=== PATIENT | female | born 1990 | race Caucasian/White ===

== ENCOUNTER 2016-06-30 20:33 | Emergency (ER) | payer OTHER ==
[~2016-06-30] VITALS: Ht 165.1 cm; Wt 68.0 kg
[~2016-06-30 20:33] MED LIST: AZIT250T PO; HYDR-971 PO; HYDR115S2 PO; PRED50TA PO; PROAIR HFA8.5 GM INH; SULF1TAB24 PO
[2016-06-30 22:46] VITALS: BP 143/77
[2016-06-30 23:27] LABS: OBC FLU VALID
[2016-07-01] MEDS ORDERED: FLUT9.9S NS (00:55)
[2016-07-01] MEDS ORDERED: BENZ200C39 PO (00:55)
--- NOTE | 2016-07-01 00:55 | PHYS DOC ---
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 She's had a nonproductive cough with posttussive emesis as well. She denies shortness of breath or fever. Patient was seen here on 06/02/16 and diagnosed with strep throat. She was prescribed a Z -Chris, prednisone, albuterol inhaler, and Tussionex. She reports interval improvement in her symptoms after completion of the medications. She did receive a flu shot this year. Her PCP is Dr. Armando Lorenz. Review of Systems Review of Systems Constitutional: Denies fever or chills. [] Eyes: Denies change in visual acuity, redness, or eye pain. [] HENT: Reports sore throat, ear pain, nasal congestion. Respiratory: Denies shortness of breath. Reports nonproductive cough. GI: Denies abdominal pain, nausea, bloody stools or diarrhea. Reports posttussive emesis. Musculoskeletal: Denies back pain or joint pain. [] Integument: Denies rash or skin lesions. [] Neurologic: Denies headache, focal weakness or sensory changes. [] All systems reviewed and negative unless otherwise stated in the HPI. Allergies Allergies Allergies Coded Allergies Type Severity Reaction Last Updated Verified No Known Drug Allergies 02/16/16 No Physical Exam Physical Exam Constitutional: Well developed, well nourished, no acute distress, non-toxic appearance. [] HENT: Normocephalic, atraumatic, bilateral external ears normal, oropharynx moist, no oral exudates, nose normal. Bilateral TMs without erythema or bulging. There is posterior pharyngeal erythema without tonsillar edema or exudates. Bilateral nasal turbinates are swollen and erythematous with purulent drainage. Eyes: PERRLA, EOMI, conjunctiva normal, no discharge. [] Neck: Normal range of motion, no tenderness, supple, no stridor. [] Cardiovascular: Heart rate regular rhythm, no murmur [] Lungs & Thorax: Bilateral breath sounds clear to auscultation without wheezes, rales, or rhonchi. Skin: Warm, dry, no erythema, no rash. [] Neurologic: Alert and oriented X 3, normal motor function, normal sensory function, no focal deficits noted. [] Psychologic: Affect normal, judgement normal, mood normal. [] Current Patient Data Vital Signs Vital Signs Date Time Temp Pulse Resp B/P Pulse Ox O2 Delivery O2 Flow Rate FiO2 06/30/16 22:46 98.4 108 16 100 Room Air 98.4 Lab Values Laboratory Tests Test 06/30/16 22:59 Influenza Type A Antigen Negative (NEGATIVE) Influenza Type B Antigen Negative (NEGATIVE) EKG EKG [] Radiology/Procedures Radiology/Procedures [] Course & Med Decision Making Course & Med Decision Making Pertinent Labs and Imaging studies reviewed. (See chart for details) [] Dragon Disclaimer Dragon Disclaimer This electronic medical record was generated, in whole or in part, using a voice recognition dictation system. Departure Departure Impression: Primary Impression: URI (upper respiratory infection) Disposition: 01 HOME, SELF-CARE Condition: STABLE Referrals: ARMANDO LORENZ (PCP) Patient Instructions: Upper Respiratory Infection, Adult, [id number] Additional Instructions: Your flu and strep tests were negative today. Please use the prescribed nasal spray daily to help with nasal drainage and congestion. You may mix liquid Benadryl and liquid Maalox and a 50/50 solution to help with your throat. Swish, gargle, and spit out. Please follow-up with a primary care provider within the next week. Return to the emergency department with any new or concerning symptoms. Scripts Benzonatate 200 Mg Capsule1 Cap PO TID #30 CAP Prov:YEIMY ROOT 07/01/16 Fluticasone Propionate (Flonase Allergy Relief)9.9 Ml [place].susp2 Sprays NS DAILY #1 BOTTLE Prov:YEIMY ROOT 07/01/16 Problem Qualifiers Primary Impression: URI (upper respiratory infection) URI type: unspecified viral URI Qualified Code: J06.9 - Acute upper respiratory infection, unspecified YEIMY ROOT Jul 01, 2016 00:55
[2016-07-01 10:03] LABS: NEGATIVE OBC STREP NEG; POSITIVE OBC STREP POS
== END 2016-07-01 01:00 | disposition home or self-care (01) ==
LOC: ER 20:33
DX: J06.9 Acute upper respiratory infection, unspecified (principal); H92.03 Otalgia, bilateral; F41.9 Anxiety disorder, unspecified; F17.200 Nicotine dependence, unspecified, uncomplicated; F12.10 Cannabis abuse, uncomplicated; Z90.89 Acquired absence of other organs; Z90.49 Acquired absence of other specified parts of digestive tract; Z86.14 Personal history of Methicillin resistant Staphylococcus aureus infection
CPT/HCPCS: 87070; 87804; 87880; 99284

== ENCOUNTER 2016-07-28 12:25 | Emergency (ER) | payer OTHER ==
[~2016-07-28] VITALS: Ht 165.1 cm; Wt 65.8 kg
[~2016-07-28 12:25] MED LIST changes: +BENZ200C39 PO; +FLUT9.9S NS
[2016-07-28] MEDS ORDERED: HYDROCODONE/APAP 5/325MG TABLET. PO ONE (13:00)
[2016-07-28] MEDS ORDERED: DIPHTH,PERTUSS(ACELL),TET TOX 0.5 ML DISP.SYRIN. VAX IM ONE (13:15)
[2016-07-28] MEDS ORDERED: ONDANSETRON ODT 4 MG TAB.RAPDIS PO ONE (13:15)
[2016-07-28] MEDS ORDERED: ONDA4TAB10 SL (13:29)
[2016-07-28] MEDS ORDERED: HYDR-2666 PO (13:29)
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
[2016-07-28 13:45] VITALS: BP 97/61
--- NOTE | 2016-07-28 13:48 | RAD ---
Left RIBS with chest, 3 views, 07/28/2016: History: Rib pain, injury No fracture or rib abnormality is detected. There is no evidence of underlying pneumothorax, hemothorax or pulmonary infiltrate. The heart size is normal. IMPRESSION: No significant left rib abnormality is detected.
== END 2016-07-28 14:15 | disposition home or self-care (01) ==
LOC: ER 12:25
DX: R07.81 Pleurodynia (principal); R11.2 Nausea with vomiting, unspecified; F41.9 Anxiety disorder, unspecified; Z90.49 Acquired absence of other specified parts of digestive tract; F12.10 Cannabis abuse, uncomplicated; Z86.14 Personal history of Methicillin resistant Staphylococcus aureus infection; Y08.89XA Assault by other specified means, initial encounter; Y93.89 Activity, other specified; Y92.89 Other specified places as the place of occurrence of the external cause; Y99.8 Other external cause status
CPT/HCPCS: 71101; 81025; 90471; 90715; 99284; Q0162

== ENCOUNTER 2016-08-20 16:06 | Emergency (ER) | payer OTHER ==
[~2016-08-20] VITALS: Ht 165.1 cm; Wt 68.0 kg
[~2016-08-20 16:06] MED LIST changes: +HYDR-2666 PO; +ONDA4TAB10 SL
[2016-08-20 16:19] VITALS: BP 120/76
--- NOTE | 2016-08-20 17:50 | PHYS DOC ---
Past Medical History Past Medical History: Anxiety, Other Additional Past Medical Histor: mrsa in abscess Past Surgical History: Cholecystectomy, Tonsillectomy Additional Past Surgical Histo: ROTATOR CUFF SX RIGHT SX Alcohol Use: None Drug Use: Marijuana Adult General Chief Complaint Chief Complaint: ABDOMINAL PAIN IN [facility] HPI Patient is a 25 year old female who presents with pelvic and right lower quadrant pain. Patient states her pain has been present for the past few days. Patient is approximately 5-1/2 weeks with last menstrual period on July 14, 2016. The patient states that she took a home tests which were positive but has not seen a healthcare provider for confirmation at this time. Patient states that the pain is typically dull but becomes sharp with certain movements including bending over and twisting at the torso. Patient also notes that she has been having burning with urination. Patient denies any vaginal bleeding or abnormal vaginal discharge. Patient denies any fevers or associated nausea or vomiting. Patient rates her pain as 5 out of 10. Patient has not taken any medications to help with symptoms. Review of Systems Review of Systems Constitutional: Denies fever or chills [] Eyes: Denies change in visual acuity, redness, or eye pain [] HENT: Denies nasal congestion or sore throat [] Respiratory: Denies cough or shortness of breath [] Cardiovascular: No additional information not addressed in HPI [] GI: Abdominal pain, denies nausea, vomiting, bloody stools or diarrhea [] : Dysuria [] Musculoskeletal: Denies back pain or joint pain [] Integument: Denies rash or skin lesions [] Neurologic: Denies headache, focal weakness or sensory changes [] Current Medications Current Medications Current Medications Medications (Trade) Dose Ordered Sig/Ronaldo Start Time Stop Time Status Last Admin Dose Admin Ceftriaxone Sodium (Rocephin 1gm Ivpb For Omni) 50 ml @ 100 mls/hr 1X ONCE 08/20/16 19:00 08/20/16 19:29 DC 08/20/16 18:40 100 MLS/HR Metronidazole (Flagyl) 500 mg 1X ONCE 08/20/16 19:45 08/20/16 19:46 DC 08/20/16 19:45 500 MG Allergies Allergies Allergies Coded Allergies Type Severity Reaction Last Updated Verified No Known Drug Allergies 07/28/16 No Physical Exam Physical Exam Constitutional: Alert, afebrile, no acute distress. [] HENT: Normocephalic, atraumatic, bilateral external ears normal, oropharynx moist, no oral exudates, nose normal. [] Eyes: PERRLA, EOMI, conjunctiva normal, no discharge. [] Neck: Normal range of motion, no tenderness, supple, no stridor. [] Cardiovascular:Heart rate regular rhythm, no murmur [] Lungs & Thorax: Bilateral breath sounds clear to auscultation [] Abdomen: Bowel sounds normal, soft, suprapubic tenderness to palpation, no masses, no pulsatile masses. Pelvic: Normal external exam, no abnormal discharge or blood in vaginal canal, no cervical motion tenderness, midline tenderness to palpation on bimanual exam , no adnexal tenderness [] Skin: Warm, dry, no erythema, no rash. [] Back: No tenderness, no CVA tenderness. [] Extremities: No tenderness, no cyanosis, no clubbing, ROM intact, no edema. [] Neurologic: Alert and oriented X 3, normal motor function, normal sensory function, no focal deficits noted. [] Current Patient Data Vital Signs Vital Signs Date Time Temp Pulse Resp B/P Pulse Ox O2 Delivery O2 Flow Rate FiO2 08/20/16 16:19 98.1 122 20 120/76 99 Room Air 98.1 Lab Values Laboratory Tests Test 08/20/16 16:45 08/20/16 17:03 08/20/16 18:00 White Blood Count 13.1x10^3/uL (4.0-11.0) H Red Blood Count 4.41x10^6/uL (3.50-5.40) Hemoglobin 13.2g/dL (12.0-15.5) Hematocrit 40.2% (36.0-47.0) Mean Corpuscular Volume 91fL (79-100) Mean Corpuscular Hemoglobin 30pg (25-35) Mean Corpuscular Hemoglobin Concent 33g/dL (31-37) Red Cell Distribution Width 14.9% (11.5-14.5) H Platelet Count 225x10^3/uL (140-400) Neutrophils (%) (Auto) 63% (31-73) Lymphocytes (%) (Auto) 26% (24-48) Monocytes (%) (Auto) 9% (0-9) Eosinophils (%) (Auto) 1% (0-3) Basophils (%) (Auto) 1% (0-3) Neutrophils # (Auto) 8.2x10^3uL (1.8-7.7) H Lymphocytes # (Auto) 3.5x10^3/uL (1.0-4.8) Monocytes # (Auto) 1.2x10^3/uL (0.0-1.1) H Eosinophils # (Auto) 0.1x10^3/uL (0.0-0.7) Basophils # (Auto) 0.1x10^3/uL (0.0-0.2) Maternal Serum HCG Beta Subunit 6mIU/mL (0-6) Sodium Level 139mmol/L (136-145) Potassium Level 3.9mmol/L (3.5-5.1) Chloride Level 103mmol/L (98-107) Carbon Dioxide Level 26mmol/L (21-32) Anion Gap 10 (6-14) Blood Urea Nitrogen 8mg/dL (7-20) Creatinine 0.7mg/dL (0.6-1.0) Estimated GFR (Cockcroft-Gault) 101.1 BUN/Creatinine Ratio 11 (6-20) Glucose Level 70mg/dL (70-99) Calcium Level 9.1mg/dL (8.5-10.1) Magnesium Level 1.9mg/dL (1.8-2.4) Total Bilirubin 0.6mg/dL (0.2-1.0) Aspartate Amino Transferase (AST) 23U/L (15-37) Alanine Aminotransferase (ALT) 16U/L (14-59) Alkaline Phosphatase 72U/L (46-116) Total Protein 7.9g/dL (6.4-8.2) Albumin 3.3g/dL (3.4-5.0) L Albumin/Globulin Ratio 0.7 (1.0-1.7) L POC Urine HCG, Qualitative Hcg negative (Negative) Urine Collection Type Unknown Urine Color Yellow Urine Clarity Clear Urine pH 6.0 Urine Specific [place] 1.010 Urine Protein Negativemg/dL (NEG-TRACE) Urine Glucose (UA) Negativemg/dL (NEG) Urine Ketones (Stick) Negativemg/dL (NEG) Urine Blood Trace (NEG) Urine Nitrite Negative (NEG) Urine Bilirubin Negative (NEG) Urine Urobilinogen Dipstick 0.2mg/dL (0.2 mg/dL) Urine Leukocyte Esterase Moderate (NEG) Urine RBC 3-5/HPF (0-2) Urine WBC 20-40/HPF (0-4) Urine Squamous Epithelial Cells Mod/LPF Urine Bacteria Few/HPF (0-FEW) Laboratory Tests 08/20/16 16:45 Laboratory Tests 08/20/16 16:45 Microbiology 08/20/16 Wet Prep - Final, Complete Microbiology 08/20/16 Wet Prep - Final, Complete EKG EKG Not performed [] Radiology/Procedures Radiology/Procedures [facility] [address] [place] [address] IMAGING REPORT Signed PATIENT: PATRICK HURST ACCOUNT: [id number] : 1990 LOCATION: ER AGE: 25 SEX: F EXAM STATUS: REG ER ORD. PHYSICIAN: LISANDRA ROCHA MD REASON: pelvic and right lower quadrant pain, last menstrual period 07/14/2016 PROCEDURE: PREG 1ST TRIMESTER PROCEDURE Obstetric ultrasound, less than 14 weeks. HISTORY Right lower quadrant pain x2 days. Positive home test. TECHNIQUE Real-time ultrasound imaging of the pelvis using transabdominal and transvaginal window is performed. COMPARISON None. FINDINGS The uterus measures 8.8 x 4.7 x 4.3 cm. There is no focal abnormality. Anteverted uterus. Cervix length is about 3.7 cm. Endometrial stripe measures 8 millimeters. An intrauterine gestational sac is not identified. No cul-de-sac free fluid is identified. Normal blood flow in the ovaries. A left functional cyst measures up to 1.2 cm. A right functional cyst measures up to 1.7 cm. Ovaries are symmetric in size. No evidence of adnexal mass. IMPRESSION Intrauterine gestation is not identified. No suspicious findings in the pelvis or adnexal. Recommend serial quantitative beta HCG. Electronically signed by: Noble Wynn MD (Aug 20, 2016 18:57:29) DICTATED and SIGNED BY: NOBLE WYNN MD DATE: 08/20/16 [id number] CC: LISANDRA ROCHA MD; JOCELINE LORENZ ~ [] Course & Med Decision Making Course & Med Decision Making Pertinent Labs and Imaging studies reviewed. (See chart for details) Patient was found to have urinary tract infection and was started on IV Rocephin. Patient's urine hCG was negative, however patient did measure a trace positive beta hCG level from her blood work. Spoke with patient regarding this and the possibility the patient may be very early at this time. The patient was also found to have bacterial vaginosis on her wet prep. The patient will be treated with Keflex for urinary tract infection and MetroGel for bacterial vaginosis with recommended follow-up with Dr. Crum of [facility] in one week for follow-up and repeat hCG testing. Advised return to the emergency department for any worsening symptoms. Patient voiced understanding and in agreement with treatment plan. Dragon Disclaimer Dragon Disclaimer This electronic medical record was generated, in whole or in part, using a voice recognition dictation system. Departure Departure Impression: Primary Impression: Urinary tract infection Additional Impressions: Elevated serum hCG Bacterial vaginosis Disposition: HOME, SELF-CARE Condition: IMPROVED Referrals: JOCELINE LORENZ (PCP) SACHA CRUM Jr, MD Patient Instructions: Bacterial Vaginosis, Human Chorionic Gonadotropin (hCG), Urinary Tract Infection Additional Instructions: Your serum hCG level was trace positive today. Your ultrasound did not reveal any evidence of an intrauterine . It is recommended that you follow-up with [facility] in one week for reevaluation and repeat hCG testing. Finish your antibiotics for treatment of urinary tract infection and bacterial vaginosis. Return to the emergency department for any worsening symptoms. Scripts Metronidazole (Metrogel-Vaginal)70 Gm Gel.w.appl1 Appful VG QHS 7 Days Prov:LISANDRA ROCHA MD 08/20/16 Cephalexin (Keflex)500 Mg Capsule1 Cap PO TID #21 CAP Prov:LISANDRA ROCHA MD 08/20/16 Problem Qualifiers Primary Impression: Urinary tract infection Urinary tract infection type: site unspecified Hematuria presence: without hematuria Qualified Code: N39.0 - Urinary tract infection, site not specified LISANDRA ROCHA MD Aug 20, 2016 17:50
[2016-08-20 18:00] LABS: BASO # 0.1 x10^3/uL (0.0-0.2); BASO % 1 % (0-3); EOS % 1 % (0-3); HEMATOCRIT 40.2 % (36.0-47.0); HEMOGLOBIN 13.2 g/dL (12.0-15.5); LYMPH # 3.5 x10^3/uL (1.0-4.8); LYMPH % 26 % (24-48); MEAN CORPUSCULAR HEMOGLOBIN 30 pg (25-35); MEAN CORPUSCULAR HGB CONC 33 g/dL (31-37); MEAN CORPUSCULAR VOLUME 91 fL (79-100); MONO % 9 % (0-9); NEUT % 63 % (31-73); PLATELET COUNT 225 x10^3/uL (140-400); RED BLOOD COUNT 4.41 x10^6/uL (3.50-5.40); RED CELL DISTRIBUTION WIDTH 14.9 % (11.5-14.5); WHITE BLOOD COUNT 13.1 x10^3/uL (4.0-11.0)
[2016-08-20 18:05] LABS: BILIRUBIN,URINE NEGATIVE (NEG); GLUCOSE,URINE NEGATIVE (NEG); NITRITE,URINE NEGATIVE (NEG); PROTEIN,URINE NEGATIVE (NEG-TRACE); UROBILINOGEN,URINE 0.2 mg/dL (0.2 mg/dL)
[2016-08-20 18:13] LABS: BACTERIA,URINE FEW /HPF (0-FEW); SQUAMOUS EPITHELIAL CELL,UR MOD /LPF; WBC,URINE 20-40 /HPF (0-4)
[2016-08-20 18:14] LABS: CALCIUM 9.1 mg/dL (8.5-10.1); CREATININE 0.7 mg/dL (0.6-1.0); GFR 101.1; POTASSIUM 3.9 mmol/L (3.5-5.1)
[2016-08-20 18:19] LABS: ALBUMIN 3.3 g/dL (3.4-5.0); ALBUMIN/GLOBULIN RATIO 0.7 (1.0-1.7); MAGNESIUM 1.9 mg/dL (1.8-2.4); TOTAL BILIRUBIN 0.6 mg/dL (0.2-1.0); TOTAL PROTEIN 7.9 g/dL (6.4-8.2)
--- NOTE | 2016-08-20 18:58 | RAD ---
PROCEDURE Obstetric ultrasound, less than 14 weeks. HISTORY Right lower quadrant pain x2 days. Positive home test. TECHNIQUE Real-time ultrasound imaging of the pelvis using transabdominal and transvaginal window is performed. COMPARISON None. FINDINGS The uterus measures 8.8 x 4.7 x 4.3 cm. There is no focal abnormality. Anteverted uterus. Cervix length is about 3.7 cm. Endometrial stripe measures 8 millimeters. An intrauterine gestational sac is not identified. No cul-de-sac free fluid is identified. Normal blood flow in the ovaries. A left functional cyst measures up to 1.2 cm. A right functional cyst measures up to 1.7 cm. Ovaries are symmetric in size. No evidence of adnexal mass. IMPRESSION Intrauterine gestation is not identified. No suspicious findings in the pelvis or adnexal. Recommend serial quantitative beta HCG. Electronically signed by: Noble Wynn MD (Aug 20, 2016 18:57:29)
[2016-08-20] MEDS ORDERED: CEFTRIAXONE 1GM IVPB FOR OMNI 50 ML IV ONE (19:00)
[2016-08-20] MEDS ORDERED: METR500T PO (19:36)
[2016-08-20] MEDS ORDERED: CEPH-264 PO (19:36)
[2016-08-20] MEDS ORDERED: METRONIDAZOLE 500 MG TABLET. PO ONE (19:45)
[2016-08-20] MEDS ORDERED: METR70GE14 VG (19:51)
== END 2016-08-20 19:48 | disposition home or self-care (01) ==
LOC: ER 16:06
DX: O23.41 Unspecified infection of urinary tract in pregnancy, first trimester (principal); Z3A.01 Less than 8 weeks gestation of pregnancy; O23.591 Infection of other part of genital tract in pregnancy, first trimester; N76.0 Acute vaginitis; B96.89 Other specified bacterial agents as the cause of diseases classified elsewhere; O28.0 Abnormal hematological finding on antenatal screening of mother; R74.8 Abnormal levels of other serum enzymes; F12.10 Cannabis abuse, uncomplicated; Z90.49 Acquired absence of other specified parts of digestive tract
CPT/HCPCS: 36415; 76801; 80053; 81001; 81025; 83735; 84702; 85027; 87086; 87491; 87591; 96365; 99285; J0690; Q0111; 87186

== ENCOUNTER 2019-04-28 10:48 | Emergency (ER) | payer MEDICAID, OTHER ==
[~2019-04-28] VITALS: Ht 165.1 cm; Wt 77.1 kg
[~2019-04-28 10:48] MED LIST changes: +ALBU2.5V8 INH; -BENZ200C39 PO; +BENZ200C47 PO; +CEPH-264 PO; -HYDR-2666 PO; +HYDR-2761 PO; +HYDR-3164 PO; -HYDR-971 PO; +METR500T PO; +METR70GE14 VG; -PROAIR HFA8.5 GM INH
[2019-04-28 10:55] VITALS: BP 119/72
[2019-04-28 12:05] LABS: INFLUENZA A PATIENT NEGATIVE (NEGATIVE); INFLUENZA B PATIENT NEGATIVE (NEGATIVE)
[2019-04-28] MEDS ORDERED: BENZ100C PO (12:11)
--- NOTE | 2019-04-28 12:12 | PHYS DOC ---
Past Medical History Past Medical History: Anxiety, MRSA, Seizure Additional Past Medical Histor: mrsa in abscess Past Surgical History: Cholecystectomy, Hysterectomy, Tonsillectomy, Other Additional Past Surgical Histo: ROTATOR CUFF SX RIGHT SX Additional Information: SMOKES 3 CIGARETTES A DAY Alcohol Use: None Drug Use: Marijuana Adult General Chief Complaint Chief Complaint: COUGH HPI HPI Patient is a 28 year old female who presents to the ED today complaining of productive cough with nasal congestion for one week. Patient is in the ED with 2 other family members with same complaint. Review of Systems Review of Systems Constitutional: Denies fever or chills [] Eyes: Denies change in visual acuity, redness, or eye pain [] HENT: Denies nasal congestion or sore throat [] Respiratory: Reports cough, denies shortness of breath [] Cardiovascular: No additional information not addressed in HPI [] GI: Denies abdominal pain, nausea, vomiting, bloody stools or diarrhea [] : Denies dysuria or hematuria [] Musculoskeletal: Denies back pain or joint pain [] Integument: Denies rash or skin lesions [] Neurologic: Denies headache, focal weakness or sensory changes [] All other systems were reviewed and found to be within normal limits, except as documented in this note. Allergies Allergies Allergies Coded Allergies Type Severity Reaction Last Updated Verified No Known Drug Allergies 07/28/16 No Physical Exam Physical Exam Constitutional: Well developed, well nourished, no acute distress, non-toxic appearance. [] HENT: Normocephalic, atraumatic, bilateral external ears normal, oropharynx moist, no oral exudates, nose normal. [] Eyes: PERRLA, EOMI, conjunctiva normal, no discharge. [] Neck: Normal range of motion, no tenderness, supple, no stridor. [] Cardiovascular:Heart rate regular rhythm, no murmur [] Lungs & Thorax: Bilateral breath sounds clear to auscultation [] Abdomen: Bowel sounds normal, soft, no tenderness, no masses, no pulsatile masses. [] Skin: Warm, dry, no erythema, no rash. [] Back: No tenderness, no CVA tenderness. [] Extremities: No tenderness, no cyanosis, no clubbing, ROM intact, no edema. [] Neurologic: Alert and oriented X 3, normal motor function, normal sensory function, no focal deficits noted. [] Psychologic: Affect normal, judgement normal, mood normal. [] Current Patient Data Vital Signs Vital Signs Date Time Temp Pulse Resp B/P (MAP) Pulse Ox O2 Delivery O2 Flow Rate FiO2 04/28/19 10:55 98.3 101 17 119/72 (88) 98 Room Air 98.3 Lab Values Laboratory Tests Test 04/28/19 11:19 Influenza Type A Antigen Negative (NEGATIVE) Influenza Type B Antigen Negative (NEGATIVE) EKG EKG [] Radiology/Procedures Radiology/Procedures [] Course & Med Decision Making Course & Med Decision Making Pertinent Labs and Imaging studies reviewed. (See chart for details) This is a 28-year-old female patient presenting to the ED today with cough and nasal congestion for one week. Lungs are clear. Negative for influenza A or B. Symptoms are viral. Supportive care measures recommended. Dragon Disclaimer Dragon Disclaimer This electronic medical record was generated, in whole or in part, using a voice recognition dictation system. Departure Departure Impression: Primary Impression: URI (upper respiratory infection) Additional Impression: Cough Disposition: 01 HOME, SELF-CARE Condition: STABLE Referrals: NO PCP (PCP) follow up in one week Patient Instructions: Cough, Adult, [id number], Upper Respiratory Infection, Adult, [id number] Additional Instructions: You were evaluated in the emergency room with cough and nasal congestion. Please use the prescribed medicine as well as [id number] remedies to manage this symptoms. Maintain good hand hygiene. Follow-up with your doctor in 1-2 weeks. Scripts Benzonatate (TESSALON PERLE) 100 Mg Capsule 1 CAP PO TID, #30 CAP Prov: KANA JOHNSON PHYSICIAN NEONATOLOGY 04/28/19 Problem Qualifiers Primary Impression: URI (upper respiratory infection) URI type: unspecified URI Qualified Codes: J06.9 - Acute upper respiratory infection, unspecified KANA JOHNSON PHYSICIAN NEONATOLOGY Apr 28, 2019 12:11
== END 2019-04-28 12:42 | disposition home or self-care (01) ==
LOC: ER 10:48
DX: J06.9 Acute upper respiratory infection, unspecified (principal); Z86.14 Personal history of Methicillin resistant Staphylococcus aureus infection; F17.210 Nicotine dependence, cigarettes, uncomplicated
CPT/HCPCS: 87804; 99284